=== PATIENT | male | born 1975 | race Caucasian/White ===

== ENCOUNTER 2018-06-19 17:18 | Emergency (ER) | payer OTHER ==
[~2018-06-19] VITALS: Ht 172.7 cm; Wt 113.4 kg
[~2018-06-19 17:18] MED LIST: ALPRAZOLAM ER1 MG PO; CELEXA20 MG PO; DEPAKOTE ER500 M1 PO; IBUPROFEN 800800 M1 PO; PERCOCET PO; TRAMADOL 50 MG50 MG PO
[2018-06-19] MEDS ORDERED: ADDERALL 10 MG10 MG PO (17:31)
[2018-06-19] MEDS ORDERED: IBUPROFEN 800800 M1 PO (17:44)
[2018-06-19] MEDS ORDERED: ROBAXIN500 MG PO (17:44)
[2018-06-19 18:20] VITALS: BP 146/85
== END 2018-06-19 18:21 | disposition home or self-care (01) ==
LOC: M.ERS 17:18
DX: S16.1XXA Strain of muscle, fascia and tendon at neck level, initial encounter (principal); S29.012A Strain of muscle and tendon of back wall of thorax, initial encounter; Z88.1 Allergy status to other antibiotic agents; Z88.8 Allergy status to other drugs, medicaments and biological substances; V89.2XXA Person injured in unspecified motor-vehicle accident, traffic, initial encounter; Y93.89 Activity, other specified; Y92.89 Other specified places as the place of occurrence of the external cause; Y99.8 Other external cause status